=== PATIENT | male | born 1965 | race Two or more races ===

== ENCOUNTER → 2018-10-23 | Outpatient (CLI) | payer BC ==
[2018-10-23 13:53] LABS: Basophils # (auto) 0 uL; Basophils % (auto) 0.7 % (0.0-2.0); Eosinophils # (auto) 0.1 uL; Eosinophils % (auto) 1.2 % (0.0-7.0); Hematocrit 45.8 % (41.0-53.0); Hemoglobin 15.4 g/dL (13.5-17.5); Lymphocytes % (auto) 15.3 % (10.0-50.0); Mean Corpuscular Hemoglobin 29.8 pg (28.0-32.0); Mean Corpuscular Hgb Conc. 33.7 g/dL (32.0-36.0); Mean Corpuscular Volume 88.5 fL (80.0-100.0); Monocytes # (auto) 0.3 uL; Monocytes % (auto) 4.5 % (0.0-12.0); Neutrophils # (auto) 4.9 uL; Neutrophils % (auto) 78.3 % (37.0-80.0); Nucleated Red Blood Cells % 0.1 %; Platelet Count (auto) 222 10^3/uL (140-450); Red Blood Cells 5.18 10^6/uL (4.5-5.90); Red Cell Distribution Width 13.8 % (11.8-14.3); White Blood Cell 6.3 10^3/uL (4.4-10.8)
[2018-10-23 13:55] LABS: Urine Blood TRACE /uL (Negative); Urine Specific Gravity 1.017 (1.001-1.035)
[2018-10-23 14:11] LABS: Albumin 4.1 g/dL (3.4-5.0); Calcium 8.9 mg/dL (8.5-10.1); Potassium 3.9 mmol/L (3.5-5.1)
[2018-10-23 14:16] LABS: Bilirubin, Total 0.4 mg/dL (0.2-1.0); Total Protein 7.3 g/dL (6.4-8.2)
[2018-10-23 14:23] LABS: Free T4 (Free Thyroxine) 1.18 ng/dL (0.89-1.76)
[2018-10-23 14:24] LABS: Prostate Specific Antigen 0.63 ng/mL (0.0-4.0)
[2018-10-23 14:29] LABS: Alcohol, Urine < 3.0 mg/dL (0-5); Amphetamine Screen, Urine NEGATIVE (NEGATIVE); Barbiturate Scree,Urine NEGATIVE (NEGATIVE); Benzodiazephine Screen, Urine NEGATIVE (NEGATIVE); Cannabinoid Screen, Urine NEGATIVE (NEGATIVE); Cocaine Screen, Urine NEGATIVE (NEGATIVE); Opiate Scree,Urine NEGATIVE (NEGATIVE); Phencyclidine Screen, Urine NEGATIVE (NEGATIVE)
[2018-10-26 10:44] LABS: Hepatitis B Surface Antibody Negative
[2018-10-26 11:14] LABS: Hepatitis A Total Antibody Positive
[2018-10-26 13:56] LABS: Hepatitis C Antibody Negative (Negative)
[2018-10-26 13:57] LABS: Hepatitis B Core Total AB Negative; Hepatitis B Surface Antigen Negative (Negative)
== END | disposition home or self-care (01) ==
LOC: LAB 13:26
PROVIDERS: ATTEND Internal Medicine
DX: Z00.00 Encounter for general adult medical examination without abnormal findings (principal)
CPT/HCPCS: 36415; 80053; 80307; 81003; 82607; 83036; 84153; 84439; 84443; 85025; 86704; 86706; 86708; 86803; 87340

== ENCOUNTER → 2018-10-30 | Outpatient (CLI) | payer BC ==
[2018-10-30 10:04] LABS: Cholesterol 165 mg/dL (< 200); HDL Cholesterol 49 mg/dL (40-59); LDL Cholesterol 105 mg/dL (< 100); Triglycerides 56 mg/dL (< 150)
== END | disposition home or self-care (01) ==
LOC: LAB 07:26
PROVIDERS: ATTEND Internal Medicine
DX: Z00.00 Encounter for general adult medical examination without abnormal findings (principal)
CPT/HCPCS: 36415; 80061

== ENCOUNTER → 2018-11-24 | Outpatient (CLI) | payer BC | END | disposition home or self-care (01) | LOC: LAB 09:35 | PROVIDERS: ATTEND Internal Medicine Gastroenterology | DX: Z01.812 Encounter for preprocedural laboratory examination (principal) | CPT/HCPCS: 82274 ==

== ENCOUNTER 2021-05-13 19:24 | Emergency (ER) | payer BC ==
[~2021-05-13] VITALS: Ht 182.9 cm; Wt 89.8 kg
[2021-05-13 19:27] VITALS: BP 145/94
== END 2021-05-14 00:17 | disposition home or self-care (01) ==
LOC: ER 19:26
DX: M54.59 Other low back pain (principal); F17.210 Nicotine dependence, cigarettes, uncomplicated
CPT/HCPCS: 72100

== ENCOUNTER → 2024-04-26 | Outpatient (CLI) | payer BC ==
[2024-04-26 06:29] LABS: Urine Bacteria None Seen /hpf (None Seen)
[2024-04-26 06:45] LABS: Basophils # (auto) 0.1 10 ^3/uL (0-0.2); Basophils % (auto) 2.7 % (0.0-2.0); Eosinophils # (auto) 0.2 10 ^3/uL (0-0.8); Eosinophils % (auto) 4.2 % (0.0-7.0); Hematocrit 48.3 % (41.0-53.0); Hemoglobin 16.3 g/dL (13.5-17.5); Lymphocytes # (auto) 1.2 10 ^3/uL (0.4-5.4); Lymphocytes % (auto) 23.4 % (10.0-50.0); Mean Corpuscular Hgb Conc. 33.9 g/dL (32.0-36.0); Mean Corpuscular Volume 88.5 fL (80.0-100.0); Monocytes # (auto) 0.1 10 ^3/uL (0-1.3); Monocytes % (auto) 2.7 % (0.0-12.0); Neutrophils # (auto) 3.5 10 ^3/uL (1.6-8.6); Platelet Count (auto) 225 10^3/uL (140-450); Red Blood Cells 5.45 10^6/uL (4.5-5.90); White Blood Cell 5.3 10^3/uL (4.4-10.8)
[2024-04-26 06:55] LABS: Urine Blood TRACE /uL (Negative); Urine Clarity Clear (Clear); Urine Color Light-Yellow (Yellow); Urine Mucus FEW (None Seen); Urine Protein, UAD Negative (Negative); Urine Specific Gravity 1.016 (1.001-1.035); Urine Squamous Epithelial Cell None Seen /hpf (<5); Urine Urobilinogen Normal (Negative); Urine WBC < 1 /HPF (0-3); Urine pH 5.5 (5.0-9.0)
[2024-04-26 07:22] LABS: Alanine Aminotransferase 21 U/L (7-40); Alkaline Phosphatase 114 U/L (46-116); Anion Gap 9 (5-15); BUN/Creatinine Ratio 16.1 (10.0-20.0); Blood Urea Nitrogen 15 mg/dL (9-23); Calcium 9.3 mg/dL (8.7-10.4); Carbon Dioxide 24 mmol/L (20-31); Chloride 105 mmol/L (98-107); Potassium 4.3 mmol/L (3.5-5.1); Sodium 138 mmol/L (136-145); Triglycerides 76 mg/dL (< 150)
[2024-04-26 07:23] LABS: Albumin 4.6 g/dL (3.2-4.8); Bilirubin, Total 0.3 mg/dL (0.2-1.0); Cholesterol 180 mg/dL (< 200); HDL Cholesterol 52 mg/dL (40-59)
[2024-04-26 07:25] LABS: Aspartate Aminotransferase 11 U/L (13-40); Glucose 112 mg/dL (74-106); LDL Cholesterol 130 mg/dL (< 100)
== END | disposition home or self-care (01) ==
LOC: LAB 06:10
PROVIDERS: ATTEND Licensed Practical Nurse
DX: Z12.5 Encounter for screening for malignant neoplasm of prostate (principal); Z12.11 Encounter for screening for malignant neoplasm of colon; Z13.220 Encounter for screening for lipoid disorders; Z13.29 Encounter for screening for other suspected endocrine disorder; E55.9 Vitamin D deficiency, unspecified; R73.03 Prediabetes
CPT/HCPCS: 36415; 80053; 80061; 81001; 82274; 82306; 84153; 84443; 85025

== ENCOUNTER 2024-09-02 08:52 | Outpatient (CLI) | payer BC ==
[2024-09-02 09:12] LABS: Basophils # (auto) 0 10 ^3/uL (0-0.2); Basophils % (auto) 0.8 % (0.0-2.0); Eosinophils # (auto) 0.1 10 ^3/uL (0-0.8); Eosinophils % (auto) 1.5 % (0.0-7.0); Hematocrit 47.4 % (41.0-53.0); Hemoglobin 16.1 g/dL (13.5-17.5); Lymphocytes # (auto) 0.9 10 ^3/uL (0.4-5.4); Lymphocytes % (auto) 21.9 % (10.0-50.0); Mean Corpuscular Hemoglobin 29.6 pg (28.0-32.0); Mean Corpuscular Hgb Conc. 33.9 g/dL (32.0-36.0); Mean Corpuscular Volume 87.4 fL (80.0-100.0); Monocytes # (auto) 0.3 10 ^3/uL (0-1.3); Monocytes % (auto) 6.7 % (0.0-12.0); Neutrophils # (auto) 2.8 10 ^3/uL (1.6-8.6); Neutrophils % (auto) 69.1 % (37.0-80.0); Nucleated Red Blood Cells % 0.1 %; Platelet Count (auto) 206 10^3/uL (140-450); Red Blood Cells 5.43 10^6/uL (4.5-5.90); Red Cell Distribution Width 13.7 % (11.8-14.3)
[2024-09-02 09:34] LABS: Alanine Aminotransferase 20 U/L (7-40); Albumin 4.7 g/dL (3.2-4.8); Alkaline Phosphatase 103 U/L (46-116); Anion Gap 9 (5-15); Aspartate Aminotransferase 17 U/L (<34); BUN/Creatinine Ratio 18.1 (10.0-20.0); Blood Urea Nitrogen 15 mg/dL (9-23); Calcium 9.6 mg/dL (8.7-10.4); Carbon Dioxide 23 mmol/L (20-31); Glucose 101 mg/dL (74-106); Sodium 141 mmol/L (136-145); Total Protein 7.2 g/dL (5.7-8.2); Triglycerides 63 mg/dL (< 150)
[2024-09-02 09:35] LABS: Bilirubin, Total 0.6 mg/dL (0.2-1.0); Cholesterol 170 mg/dL (< 200); HDL Cholesterol 48 mg/dL (40-59)
[2024-09-02 09:38] LABS: Chloride 109 mmol/L (98-107); LDL Cholesterol 120 mg/dL (< 100)
== END 2024-09-02 17:00 | disposition home or self-care (01) ==
LOC: LAB 08:52
PROVIDERS: ATTEND Licensed Practical Nurse
DX: I10 Essential (primary) hypertension (principal); E78.5 Hyperlipidemia, unspecified; R73.03 Prediabetes
CPT/HCPCS: 36415; 80053; 80061; 82043; 82728; 83036; 85025

== ENCOUNTER → 2024-10-09 | Day surgery (SDC) | payer BC ==
[2024-10-04 15:09] LABS: Hematocrit 49.1 % (41.0-53.0); Hemoglobin 16.7 g/dL (13.5-17.5); Mean Corpuscular Hemoglobin 30.0 pg (28.0-32.0); Mean Corpuscular Volume 88.3 fL (80.0-100.0); Nucleated Red Blood Cells % 0.1 %
[2024-10-04 15:27] LABS: Alanine Aminotransferase 22 U/L (7-40); Alkaline Phosphatase 112 U/L (46-116); Anion Gap 9 (5-15); BUN/Creatinine Ratio 12.2 (10.0-20.0); Blood Urea Nitrogen 12 mg/dL (9-23); Calcium 10.1 mg/dL (8.7-10.4); Carbon Dioxide 26 mmol/L (20-31); Chloride 105 mmol/L (98-107); Glucose 100 mg/dL (74-106); Potassium 4.2 mmol/L (3.5-5.1); Sodium 140 mmol/L (136-145); Total Protein 7.4 g/dL (5.7-8.2)
[2024-10-04 15:28] LABS: Bilirubin, Total 0.4 mg/dL (0.2-1.0)
[2024-10-04 15:41] LABS: Albumin 4.8 g/dL (3.2-4.8)
[2024-10-05 07:10] LABS: INR 0.99 (0.9-1.15); Partial Thromboplastin Time 28.0 SEC (24.5-34.5); Prothrombin Time 10.5 sec (9.3-11.8)
[~2024-10-09] VITALS: Ht 182.9 cm; Wt 90.7 kg
[2024-10-09] MEDS: fentaNYL CITRATE 100 MCG/2 ML VL ONE (09:06)
[2024-10-09] MEDS: MIDAZOLAM HCL 2MG/2ML 2ml VIAL (1mg/ml) ONE (09:06)
--- NOTE | 2024-10-09 09:24 | DVHNC2 ---
Procedure - PROCEDURE DATE: OCTOBER 09, 2024 PERFORMED BY: DR. GUERRERO REFERRING PROVIDER:DR NUNO PROCEDURE PERFORMED: 1. COLONOSCOPY WITH MODERATE SEDATION 2.COLONOSCOPY WITH COLD SNARE POLYPECTOMY 3.COLONOSCOPY WITH COLD BIOPSY POLYPECTOMY PREPROCEDURE DIAGNOSIS: 1. COLON CANCER SCREENING 2. POSITIVE FIT TEST POSTPROCEDURE DIAGNOSIS: 1. EXTERNAL HEMORRHOIDS 2. 4 COLON POLYPS MEDICATIONS USED: 4MG OF VERSED AND 100 MCG OF FENTANYL IV INDICATIONS FOR PROCEDURE: THE PATIENT IS A 58 -YEAR-OLD MALE PRESENTS FOR OUTPATIENT COLONOSCOPY FOR SCREENING /+FIT TEST DETAILS OF THE PROCEDURE: INFORMED CONSENT WAS OBTAINED AFTER RISKS BENEFITS AND ALTERNATIVES WERE DISCUSSED AT LENGTH WITH THE PATIENT. THE PATIENT GAVE CONSENT TO THE PROCEDURES WELL A MEDICATION USED FOR SEDATION. THE PATIENT WAS PLACED IN THE LEFT LATERAL DECUBITUS POSITION. DIGITAL RECTAL EXAMINATION SHOWED SMALL EXTERNAL HEMORRHOIDS. AN OLYMPUS VARIABLE TORSION ADULT COLONOSCOPE WAS INSERTED INTO THE RECTUM ADVANCE THE CECUM. THE SCOPE WAS THEN WITHDRAWN. THE PREP WAS FAIR WITH SMALL AMOUNTS OF STOOL. THERE WERE 4 POLYPS REMOVED. ONE ASCENDING COLON POLYP MEASURING 1CM AND A 5 MM TRANSVERSE COLON PO LYP 5MM REMOVED WITH COLD SNARE. ONE DESCENDING AND ONE TRANSVERSE MEASURING 4MM REMOVED WITH COLD BIOPSY POLYPECTOMY. THERE WERE NO LARGE POLYPS, MASSES, STRICTURES, OR ARTERIOVENOUS MALFORMATION SEEN. THE PATIENT HAD MODERATE MILD LEFT SIDED DIVERTICULOSIS. RETROFLEXION SHOWED NO FINDINGS. PATIENT TOLERATED THE PROCEDURE WELL. COLONOSCOPY START TIME: 909 COLONOSCOPY CECUM TIME:911 COLONOSCOPY END TIME: 920 PREP SCORE:6 IMPRESSION: 1. EXTERNAL HEMORRHOIDS 2. DIVERTICULOSIS 3.4 POLYPS REMOVED RECOMMENDATIONS: 1. FOLLOW UP WITH PRIMARY CARE PHYSICIAN/GI CLINIC FOR RESULTYS 2. HIGH-FIBER DIET 3. REPEAT COLONOSCOPY IN 3 YEARS UNLESS INDICATED OTHERWISE I WOULD LIKE TO THANK DR. NUNO FOR THE REFERRAL VIANCA GUERRERO MD Oct 09, 2024 09:24
[2024-10-09 09:45] VITALS: BP 113/77; PULSE 70; RESP 12; O2SAT 98
--- NOTE | 2024-10-09 09:54 | DVHNC2 ---
Procedure - PROCEDURE DATE: OCTOBER 09, 2024 PERFORMED BY: DR. GUERRERO REFERRING PROVIDER:DR SALDIVAR PROCEDURE PERFORMED: 1. COLONOSCOPY WITH MODERATE SEDATION 2.COLONOSCOPY WITH COLD BIOPSY POLYPECTOMY PREPROCEDURE DIAGNOSIS: 1. COLON CANCER SCREENING 2.CHRONIC CONSTIPATION POSTPROCEDURE DIAGNOSIS: 1. INTERNAL HEMORRHOIDS 2. MODERATE DIVERTICULOSIS 3.2 DIMINUTIVE ASCENDING COLON POLYPS MEDICATIONS USED: 4MG OF VERSED AND 100 MCG OF F[place]ANYL IV INDICATIONS FOR PROCEDURE: THE PATIENT IS A 67 -YEAR-OLD MALE PRESENTS FOR OUTPATIENT COLONOSCOPY FOR SCREENING AND CONSTIPATION DETAILS OF THE PROCEDURE: INFORMED CONSENT WAS OBTAINED AFTER RISKS BENEFITS AND ALTERNATIVES WERE DISCUSSED AT LENGTH WITH THE PATIENT. THE PATIENT GAVE CONSENT TO THE PROCEDURES WELL A MEDICATION USED FOR SEDATION. THE PATIENT WAS PLACED IN THE LEFT LATERAL DECUBITUS POSITION. DIGITAL RECTAL EXAMINATION SHOWED SMALL INTERNAL HEMORRHOIDS. AN OLYMPUS VARIABLE TORSION ADULT COLONOSCOPE WAS INSERTED INTO THE RECTUM ADVANCE THE CECUM. THE SCOPE WAS THEN WITHDRAWN. THE PREP WAS GOOD WITH ONLY SMALL AMOUNTS OF STOOL. THERE WERE NO LARGE POLYPS, MASSES, STRICTURES, OR ARTERIOVENOUS MALFORMATION SEEN. THE PATIENT HAD MODERATE MODERATE DIVERTICULOSIS. 2 SMALL POLYPS IN THE ASCENDING COLON WERE REMOVED WITH COLD BIOPSY FORCEPS. RETROFLEXION SHOWED INTERNAL HEMORRHOIDS. PATIENT TOLERATED THE PROCEDURE WELL. COLONOSCOPY START TIME: 940 COLONOSCOPY CECUM TIME: 943 COLONOSCOPY END TIME: 950 PREP SCORE: 7 IMPRESSION: 1. INTERNAL HEMORRHOIDS 2. DIVERTICULOSIS 3.2 SMALL COLON POLYPS RECOMMENDATIONS: 1. FOLLOW UP WITH PRIMARY CARE PHYSICIAN/GI CLINIC 2. HIGH-FIBER DIET 3. REPEAT COLONOSCOPYIN 5 YEARS UNLESS INDICATED OTHERWISE 4.MEDICAL MANAGEMENT OF THE HEMORRHOIDS I WOULD LIKE TO THANK DR. SALDIVAR FOR THE REFERRAL VIANCA GUERRERO MD Oct 09, 2024 09:54
== END | disposition home or self-care (01) ==
LOC: GI 08:26
PROVIDERS: ATTEND Specialist
DX: K59.09 Other constipation (principal); D12.2 Benign neoplasm of ascending colon; D12.3 Benign neoplasm of transverse colon; K63.5 Polyp of colon; K57.30 Diverticulosis of large intestine without perforation or abscess without bleeding; G43.909 Migraine, unspecified, not intractable, without status migrainosus
CPT/HCPCS: 36415; 45380; 45385; 80053; 85025; 85610; 85730; 88305; J2250; J3010; 99152